=== PATIENT | male | born 2005 | race Hispanic/Latino ===

== ENCOUNTER 2023-11-17 11:49 | Emergency (ER) | payer SELFPAY ==
[2023-11-17 13:37] LABS: SARS-CoV-2 NAA Rapid Test Not Detected (NotDetected)
== END 2023-11-17 14:48 | disposition home or self-care (01) ==
LOC: ERS 11:49
DX: J11.1 Influenza due to unidentified influenza virus with other respiratory manifestations (principal)
CPT/HCPCS: 99283